=== PATIENT | female | born 1970 | race Caucasian/White ===

== ENCOUNTER 2018-07-14 12:46 | Emergency (ER) | payer BC ==
[2018-07-14] MEDS: ONDANSETRON 4 MG INJ IV (13:02)
[2018-07-14] MEDS: HYDROmorphONE 2 MG/ML SYG IV ×3 (13:02→14:07)
[2018-07-14] MEDS: PROPOFOL 200 MG INJ IV (13:45)
== END 2018-07-14 15:43 | disposition home or self-care (01) ==
LOC: E/R 12:46
DX: S53.105A Unspecified dislocation of left ulnohumeral joint, initial encounter (principal); S42.402A Unspecified fracture of lower end of left humerus, initial encounter for closed fracture; W01.0XXA Fall on same level from slipping, tripping and stumbling without subsequent striking against object, initial encounter; Y92.9 Unspecified place or not applicable; Z87.891 Personal history of nicotine dependence
CPT/HCPCS: 24600; 73070; 73080-LT; 96374; 96375; 96376; 99285-25